=== PATIENT | male | born 1970 | race Caucasian/White ===

== ENCOUNTER 2019-02-25 05:59 | Emergency (ER) | payer OTHER ==
[2019-02-25 06:28] VITALS: TEMP 98.1; BMI 26.4
--- NOTE | 2019-02-25 07:11 | PDOC ---
History of Present Illness - General Chief Complaint: Pain Stated Complaint: LEFT SIDE HERNIA Time Seen by Provider: 02/25/19 07:08 - History of Present Illness Initial Comments: HPI: 48yo M with no reported PMH presenting with a bulge in his left groin. He noticed the bulge about three days ago incidentally. He will notice a small discomfort in the area upon certain movements, but it is not very painful. No nausea or vomiting. Last bowel movement was yesterday and was a normal formed brown stool without blood. Passing flatulence today. No past surgical history. Has taken salk-afc-dzqyqwy medications at home, but moreso for pain from a recent dental procedure. No urinary symptoms. Has worked for a long time in a warehouse lifting heavy objects. No fever, chills, chest pain, or shortness of breath. ROS: Constitutional: no fever, no chills HEENT: no throat pain, no dysphagia Cardiovascular: no chest pain, no palpitations Respiratory: no cough, no shortness of breath Gastrointestinal: no abdominal pain, +hernia Genitourinary: no dysuria, no hematuria Musculoskeletal: no myalgia, no arthralgia Skin: no rash, no itching Neurologic: no headache, no weakness PE: General: Awake, alert, and fully oriented, in no acute distress Head: No signs of trauma Eyes: EOMI, sclera anicteric ENT: Moist mucus membranes Neck: Normal ROM, supple Lungs: Lungs clear, Normal breath sounds Cardio: Regular rhythm, S1 and S2 present Abdomen: Soft, nontender. No guarding, no rebound, no masses; inguinal hernia present on the left which is reducible Extremities: Normal range of motion, Distal pulses present SKIN: Warm, Dry, normal turgor Neurologic: Cranial nerves II through XII grossly intact. Normal speech ED Course/MDM: DDX including but not limited to inguinal hernia, incarcerated hernia, SBO, malignancy Presentation consistent with reducible inguinal hernia Patient without significant pain; no nausea, vomiting; have low suspicion for incarceration Discussed case with Dr. Cheatham who recommended CT to assess for incarceration Labs, CT Fluids Will reassess 02/25/19 07:11 CBC WBC 5.2 K/mm3 (4.0-10.0) 02/25/19 08:20 RBC 4.84 M/mm3 (4.00-5.60) 02/25/19 08:20 Hgb 14.5 GM/dL (11.7-16.9) 02/25/19 08:20 Hct 43.4 % (35.4-49) 02/25/19 08:20 MCV 89.6 fl (80-96) 02/25/19 08:20 MCH 29.9 pg (25.7-33.7) 02/25/19 08:20 MCHC 33.4 g/dl (32.0-35.9) 02/25/19 08:20 RDW 13.2 % (11.9-15.9) 02/25/19 08:20 Plt Count 264 K/MM3 (134-434) 02/25/19 08:20 MPV 7.3 fl (7.5-11.1) L 02/25/19 08:20 Absolute Neuts (auto) 3.2 K/mm3 (1.5-8.0) 02/25/19 08:20 Neutrophils % 63.1 % (42.8-82.8) 02/25/19 08:20 Lymphocytes % 25.4 % (8-40) 02/25/19 08:20 Monocytes % 6.6 % (3.8-10.2) 02/25/19 08:20 Eosinophils % 3.8 % (0-4.5) 02/25/19 08:20 Basophils % 1.1 % (0-2.0) 02/25/19 08:20 Nucleated RBC % 0 % (0-0) 02/25/19 08:20 No leukocytosis CMP Sodium 140 mmol/L (136-145) 02/25/19 08:20 Potassium 4.4 mmol/L (3.5-5.1) 02/25/19 08:20 Chloride 107 mmol/L (98-107) 02/25/19 08:20 Carbon Dioxide 29 mmol/L (21-32) 02/25/19 08:20 Anion Gap 4 MMOL/L (8-16) L 02/25/19 08:20 BUN 14.7 mg/dL (7-18) 02/25/19 08:20 Creatinine 0.8 mg/dL (0.55-1.3) 02/25/19 08:20 Est GFR (CKD-EPI)AfAm 120.72 02/25/19 08:20 Est GFR (CKD-EPI)NonAf 104.16 02/25/19 08:20 Random Glucose 91 mg/dL (74-106) 02/25/19 08:20 Calcium 9.2 mg/dL (8.5-10.1) 02/25/19 08:20 Total Bilirubin 0.4 mg/dL (0.2-1) 02/25/19 08:20 AST 25 U/L (15-37) 02/25/19 08:20 ALT 26 U/L (13-61) 02/25/19 08:20 Alkaline Phosphatase 84 U/L (45-117) 02/25/19 08:20 Total Protein 7.5 g/dl (6.4-8.2) 02/25/19 08:20 Albumin 4.0 g/dl (3.4-5.0) 02/25/19 08:20 Electrolytes unremarkable Cr normal No transaminitis Pending CT report 02/25/19 09:58 CT as reported by radiology: " EXAM#: TYPE/EXAM: RESULT : [id number] CT/ABDOMEN PELVIS CT WITH CONTR HISTORY PROVIDED: Left inguinal hernia, rule out incarceration.. Sequential axial images were obtained from the domes of the diaphragms through the symphysis pubis following the administration of intravenous contrast material. The lung bases are clear. The liver, spleen, pancreas, adrenal glands and kidneys demonstrate no significant abnormalities. The gallbladder is clear. There is no evidence of intra- abdominal or retroperitoneal lymphadenopathy or fluid collections. There is no evidence of pneumoperitoneum, bowel obstruction or intra-abdominal abscess. There is no CT evidence of acute appendicitis or diverticulitis. Examination of the pelvis demonstrates a small left inguinal hernia with a knuckle of sigmoid colon at the opening of the inguinal canal. There is no definite evidence of incarceration. There is no evidence of pelvic masses, fluid collections or lymphadenopathy. The urinary bladder is somewhat distended. The prostate gland is not significantly enlarged. There is no evidence of acute bony pathology. IMPRESSION: 1. Left inguinal hernia containing a knuckle of the sigmoid colon without definite evidence of incarceration. 2. No acute pathology within the abdomen or pelvis. Please see above discussion. Reported By: Jelani Anders MD 02/25/19 1009 " UA ordered as CT shows bladder is somewhat distended 02/25/19 10:17 Call to SW at extension [phone]; left a voicemail 02/25/19 10:30 Discussed case with KAMI who will come to evaluate the patient Miss Hameed is assigned to the case 02/25/19 11:04 SW evaluated patient; he has sufficient resources Return precautions given Stable for discharge 02/25/19 11:30 Past History - Past Medical History Allergies/Adverse Reactions: Allergies Allergy/AdvReac Type Severity Reaction Status Date / Time No Known Allergies Allergy Verified 02/25/19 06:28 Home Medications: Ambulatory Orders Cetirizine HCl 10 mg PO DAILY 02/25/19 Diaper,Brief,Adult, Disposable [Men's Underwear] 1 each MC DAILY #2 each COPD: No - Immunization History Immunization Up to Date: Yes - Psycho Social/Smoking Cessation Hx Smoking History: Never smoked Hx Alcohol Use: No Drug/Substance Use Hx: No *Physical Exam - Vital Signs Last Vital Signs Temp Pulse Resp BP Pulse Ox 98.1 F 82 16 123/71 97 02/25/19 06:00 02/25/19 06:00 02/25/19 06:00 02/25/19 06:00 02/25/19 06:00 ED Treatment Course - LABORATORY CBC & Chemistry Diagram: 02/25/19 08:20 02/25/19 08:20 Discharge - Discharge Information Problems reviewed: Yes Clinical Impression/Diagnosis: Left inguinal hernia Condition: Stable Disposition: HOME - Additional Discharge Information Prescriptions: Diaper,Brief,Adult, Disposable [Men's Underwear] 1 each MC DAILY #2 each - Follow up/Referral Referrals: Spencer Bone MD [Staff Physician] - [facility] [place] [Provider Group] - Patient Discharge Instructions Patient Printed Discharge Instructions: DI for Groin Hernia Additional Instructions: You came into the emergency department for hernia pain. Labs and CT imaging did not indicate acute pathology You have been referred to a general surgeon for further evaluation of your hernia. Call and make an appointment at the number provided. Your workup is not complete until you do so. Also follow-up with a primary care provider within 72 hours to discuss this ED visit and to further evaluate your symptoms. Your workup is not complete until you do so. You have been referred to the [facility] in case you do not have a primary care doctor. Call and make an appointment at the number provided. You can take ogsh-dox-xkvanxx tylenol or motrin for pain. Follow the instructions on the medication bottle. Immediate medical attention is required if you develop: worsening pain, high fevers, persistent nausea, vomiting, or any new or concerning symptoms. If you think you are having an emergency, call for emergency medical services or present to the emergency department right away. - Post Discharge Activity
[2019-02-25] MEDS ORDERED: SODIUM CHLORIDE 1,000 ML IV STA (07:38)
--- NOTE | 2019-02-25 07:55 | PDOC ---
Attending Attestation - Resident Resident Name: Yue Verma - ED Attending Attestation I have performed the following: I have examined & evaluated the patient, The case was reviewed & discussed with the resident, I agree w/resident's findings & plan, Exceptions are as noted - HPI HPI: 02/25/19 07:52 48yo male with L groin bulge x 3 days. No assoc n/v/d. No dysuria. No testicular or penile pain. No abd pain. No f/c. No other complaints. - Physicial Exam PE: 02/25/19 07:53 [place]: aaox3, nad abd: soft, nt/nd +bs. L groin with hernia that is easily reducible, no overlying cellulitis, no erythema, no ttp - Medical Decision Making 02/25/19 07:54 a/p: 48yo male with L inguinal hernia -will send labs, imaging for pre-op for surgery as elective outpt option -will give ivf hydration -will monitor and reassess 02/25/19 07:55 pt states insurance ends today will ask social work to come speak with the patient to offer resources for medicaid/social security 02/25/19 10:[address] imaging 02/25/19 10:33 L inguinal hernia with small amount of sigmoid colon without obstruction or incarceration pending ua 02/25/19 11:24 family caseworker states patient has resources to set up insurance as outpt 02/25/19 11:40 pt stable for dc to home and outpt follow up with surgery for elective hernia repair Heart Score/ECG Review - ECG Intrepretation Comment:: 02/25/19 09:48 sinus at 64, 1st degree av block, nl axis, no acute st/t wave findings
[2019-02-25 08:42] LABS: BASO % 1.1 % (0-2.0); EOS % 3.8 % (0-4.5); HEMATOCRIT 43.4 % (35.4-49); HEMOGLOBIN 14.5 GM/dL (11.7-16.9); LYMPH % 25.4 % (8-40); MCH 29.9 pg (25.7-33.7); MCHC 33.4 g/dl (32.0-35.9); MEAN CELL VOLUME 89.6 fl (80-96); MEAN PLT VOLUME 7.3 fl (7.5-11.1); MONO % 6.6 % (3.8-10.2); NEUT % 63.1 % (42.8-82.8); PLATELET COUNT 264 K/MM3 (134-434); RBC 4.84 M/mm3 (4.00-5.60); RDW 13.2 % (11.9-15.9); WHITE BLOOD COUNT 5.2 K/mm3 (4.0-10.0)
[2019-02-25 09:15] LABS: BILIRUBIN,TOTAL 0.4 mg/dL (0.2-1); BLOOD UREA NITROGEN 14.7 mg/dL (7-18); CALCIUM 9.2 mg/dL (8.5-10.1); CREATININE 0.8 mg/dL (0.55-1.3); POTASSIUM 4.4 mmol/L (3.5-5.1); TOT PROT 7.5 g/dl (6.4-8.2)
[2019-02-25 09:33] LABS: INR 0.97 (0.83-1.09); PROTHROMBIN TIME (PATIENT) 11.5 SEC (9.7-13.0)
[2019-02-25 09:36] LABS: ACTIVATED PTT 32.1 SECONDS (25.2-36.5)
--- NOTE | 2019-02-25 10:30 | EKG ---
Test Reason : Blood Pressure : / mmHG Vent. Rate : 064 BPM Atrial Rate : 064 BPM P-R Int : 204 ms QRS Dur : 098 ms QT Int : 386 ms P-R-T Axes : 070 000 014 degrees QTc Int : 398 ms NORMAL SINUS RHYTHM POSSIBLE LEFT ATRIAL ENLARGEMENT BORDERLINE ECG NO PREVIOUS ECGS AVAILABLE Confirmed by MD Kala, Catalino ([id number]) on 02/25/2019 10:30:09 AM Referred By: Confirmed By:Catalino Armendariz MD
[2019-02-25 10:44] LABS: PH,URINE 7.5 (5.0-8.0); URINE APPEARANCE CLEAR; URINE BILIRUBIN NEGATIVE (NEGATIVE); URINE COLOR YELLOW; URINE GLUCOSE (UA) NEGATIVE (NEGATIVE); URINE KETONE NEGATIVE (NEGATIVE); URINE LEUK ESTERASE NEGATIVE (NEGATIVE); URINE NITRITE NEGATIVE (NEGATIVE); URINE PROTEIN NEGATIVE (NEGATIVE); URINE UROBILINOGEN 0.2 mg/dL (0.2-1.0)
[2019-02-25 12:03] VITALS: BP 114/83; PULSE 74
== END 2019-02-25 12:03 | disposition home or self-care (01) ==
LOC: JER 05:59
PROC: 3E0337Z Introduction of Electrolytic and Water Balance Substance into Peripheral Vein, Percutaneous Approach (ICD-10-PCS; principal; 2019-02-25)
DX: K40.90 Unilateral inguinal hernia, without obstruction or gangrene, not specified as recurrent (principal)
CPT/HCPCS: 36415; 74177-TC; 80053; 81003; 85025; 85610; 85730; 86850; 86900; 86901; 87086; 93005; 93010; 99283-25; J7030; Q9967

== ENCOUNTER 2019-10-13 04:26 | Day surgery (SDC) | payer OTHER ==
[2019-10-09 16:22] VITALS: BMI 26.6
--- NOTE | 2019-10-13 08:45 | HP ---
History & Physical Update - History History: No Change - Physical Physical: No Change - Assessment Assessment: No Change - Plan Plan: No Change (for repair left inguinal hernia w/mesh; r/b/t/a's d/w the p atient and informed consent obtained; see my office notes.)
[2019-10-13 08:49] LABS: HEMATOCRIT 43.4 % (35.4-49); HEMOGLOBIN 14.9 GM/dL (11.7-16.9); MCH 30.3 pg (25.7-33.7); MCHC 34.4 g/dl (32.0-35.9); MEAN CELL VOLUME 88.2 fl (80-96); MEAN PLT VOLUME 7.8 fl (7.5-11.1); PLATELET COUNT 270 K/MM3 (134-434); RBC 4.92 M/mm3 (4.00-5.60); RDW 12.8 % (11.9-15.9); WHITE BLOOD COUNT 4.8 K/mm3 (4.0-10.0)
[2019-10-13 09:05] LABS: PROTHROMBIN TIME (PATIENT) 11.8 SEC (9.7-13.0)
[2019-10-13 09:22] LABS: ALBUMIN 4.1 g/dl (3.4-5.0); BILIRUBIN,TOTAL 0.6 mg/dL (0.2-1); BLOOD UREA NITROGEN 18.1 mg/dL (7-18); CALCIUM 8.7 mg/dL (8.5-10.1); CREATININE 0.8 mg/dL (0.55-1.3); POTASSIUM 3.8 mmol/L (3.5-5.1); TOT PROT 7.4 g/dl (6.4-8.2)
[2019-10-13] MEDS ORDERED: MIDAZOLAM HCL 2 MG/2 ML SINGLE DOSE VIAL ONE ×3 (09:32→09:59)
[2019-10-13] MEDS ORDERED: DEXAMETHASONE SOD PHOSPHATE/PF 10 MG/ML SDV ONE (09:35)
[2019-10-13] MEDS ORDERED: ceFAZolin SODIUM 1 GM VIAL IVPB ONE (10:05)
[2019-10-13] MEDS ORDERED: KETOROLAC TROMETHAMINE 30 MG/1 ML VIAL ONE (10:16)
[2019-10-13] MEDS ORDERED: LIDOCAINE HCL 1%, 10 MG/ML (20ML VIAL) ONE (10:18)
[2019-10-13] MEDS ORDERED: ONDANSETRON 4 MG/2 ML VIAL IVPUSH PRN (10:55)
[2019-10-13] MEDS ORDERED: oxyCODONE HCL 5 MG TABLET PO PRN (10:55)
[2019-10-13] MEDS ORDERED: LACTATED RINGERS SOLUTION 1,000 ML IV SCH (11:00)
--- NOTE | 2019-10-13 11:41 | OP ---
Operative Note - Note: Operative Date: 10/13/19 Pre-Operative Diagnosis: left inguinal hernia Operation: repair left inguinal hernia w/ProGrip Mesh Findings: indirect LIH w/weak floor Post-Operative Diagnosis: Same as Pre-op Surgeon: Shubham Pastor [employer] Utility Worker: Renato Armas Anesthesiologist/DOWELING MACHINE OPERATOR: Brandi Lang Anesthesia: General Specimens Removed: hernia sac Estimated Blood Loss (mls): 15
--- NOTE | 2019-10-13 11:52 | SURG ---
Surgery Physiatrist Note Physiatrist: Renato Armas PA-C Date of Service: 10/13/19 Diagnosis: left inguinal hernia Procedure: repair left inguinal hernia w/ProGrip Mesh I was present for the entirety of the operative procedure. For further detail, please refer to operative report.
[2019-10-13] MEDS ORDERED: oxyCODONE HCL 5 MG TABLET ONE (13:48)
[2019-10-13 14:13] VITALS: TEMP 97.3
[2019-10-13 14:59] VITALS: BP 125/76; PULSE 84
--- NOTE | 2019-10-17 11:17 | OP ---
DATE OF OPERATION: 10/13/2019 PREOPERATIVE DIAGNOSIS: Left inguinal hernia. POSTOPERATIVE DIAGNOSIS: Left inguinal hernia. PROCEDURE: Repair, left inguinal hernia, with ProGrip mesh. SURGEON: Shubham Pastor MD SLOT FLOOR SUPERVISOR: Renato Armas PA-C ANESTHESIA: General with block. OPERATIVE FINDINGS: There was an indirect left inguinal hernia with an attenuated floor of the inguinal canal. The rest of the findings were unremarkable. PROCEDURE: The patient was placed on the operating room table in the supine position. After the induction of general anesthesia, the patient's abdomen was prepped with ChloraPrep and draped in sterile fashion. A timeout was taken. A left transverse groin incision was made with a scalpel and taken down through skin, subcutaneous tissue and Beto fascia. The external oblique fascia was divided proximally and distally in the direction of its fibers and through the external ring. The cord structures and nerve were elevated at the level of the pubic tubercle and a [place] drain placed around them for retraction and identification purposes. Dissection was begun in the cord where the previously noted indirect left inguinal hernia sac was identified. The contents of the hernia were reduced and the sac dissected up to its neck, where high ligation was carried out with 2-0 Vicryl suture. Redundant sac was excised and sent for pathological examination. The floor of the inguinal canal was then repaired by fashioning a piece of ProGrip mesh into the defect and anchoring it at the pubic tubercle, shelving edge and conjoint tendon, respectively, with interrupted 2-0 Prolene. A keyhole was created for the cord structures and the tails of the mesh brought above the level of the internal ring and anchored there with interrupted 2-0 Prolene. Hemostasis was checked for and noted to be good, and then the wound was copiously irrigated with sterile saline. Hemostasis was again verified, and then the cord structures and nerve were returned to their normal anatomic position and the external oblique fascia closed over them using continuous 2-0 Vicryl recreating the external ring. Beto fascia was reapproximated with interrupted 2-0 Vicryl, the deep dermis with interrupted 3-0 Vicryl and the skin edges with 4-0 Monocryl in a subcuticular continuous fashion. Steri-Strips and dry sterile dressings were placed and the procedure terminated at this point and the patient aroused from general anesthesia and transferred to the postanesthesia care unit in stable condition, awake and alert. ESTIMATED BLOOD LOSS: 15 mL. REPLACEMENT: Crystalloid. DRAINS: None. SPECIMEN: Hernia sac to Pathology. I, Shubham Pastor, was physically present in the operating room from the time the patient was placed on the operating room table until he was transferred to the postanesthesia care unit in my accompaniment. MD KHARI [id number] MTDD
== END 2019-10-13 15:05 | disposition home or self-care (01) ==
LOC: JASU-SURG 04:26
PROVIDERS: ATTEND Surgery
PROC: 0YU60JZ Supplement Left Inguinal Region with Synthetic Substitute, Open Approach (ICD-10-PCS; principal; 2019-10-13 09:30)
DX: K40.90 Unilateral inguinal hernia, without obstruction or gangrene, not specified as recurrent (principal)
CPT/HCPCS: 36415; 80053; 85027; 85610; 88302-TC; 94760

== ENCOUNTER 2020-04-10 16:51 | Emergency (ER) | payer OTHER ==
[2020-04-10 17:03] VITALS: BP 122/78; PULSE 98; TEMP 97.8; BMI 27.7
[2020-04-10] MEDS ORDERED: DIPHTH,PERTUSS(ACELL),TET 0.5 ML DISP.SYRIN IM ONE ×2 (18:00→18:01)
== END 2020-04-10 18:45 | disposition home or self-care (01) ==
LOC: JERFT 16:51
PROC: 0HQFXZZ Repair Right Hand Skin, External Approach (ICD-10-PCS; principal; 2020-04-10)
PROC: 3E0234Z Introduction of Serum, Toxoid and Vaccine into Muscle, Percutaneous Approach (ICD-10-PCS; 2020-04-10)
DX: S61.214A Laceration without foreign body of right ring finger without damage to nail, initial encounter (principal)
CPT/HCPCS: 90715; 99284-25

== ENCOUNTER 2020-04-11 09:22 | Emergency (ER) | payer OTHER ==
[2020-04-11 09:27] VITALS: BP 136/86; PULSE 86; TEMP 97.2; BMI 27.7
[2020-04-11] MEDS ORDERED: BACITRACIN 15 GM TUBE TOPICAL OINTMENT ONE (09:44)
== END 2020-04-11 09:59 | disposition home or self-care (01) ==
LOC: JER 09:22
DX: S61.419A Laceration without foreign body of unspecified hand, initial encounter (principal)
CPT/HCPCS: 99284-25